=== PATIENT | female | born 1955 | race Caucasian/White ===

== ENCOUNTER 2018-12-24 15:56 | Inpatient (IN) | payer MEDICARE, MEDICAID ==
[2018-12-24] MEDS ORDERED: ESCI20TA PO (16:27)
[2018-12-24] MEDS ORDERED: PREG100C55 PO (16:27)
[2018-12-24] MEDS ORDERED: LEVO25TA7 PO (16:27)
[2018-12-24] MEDS ORDERED: ROPI5TAB4 PO (16:27)
[2018-12-24] MEDS ORDERED: LISI-607 PO (16:27)
[2018-12-24] MEDS ORDERED: DICL100G26 TP (16:27)
[2018-12-24] MEDS ORDERED: ATOR40TA PO (16:27)
[2018-12-24] MEDS ORDERED: BUPR300T54 PO (16:27)
[2018-12-24] MEDS ORDERED: METF-440 PO (16:27)
[2018-12-24] MEDS ORDERED: CYCL5TAB PO (16:27)
[2018-12-24] MEDS ORDERED: OXYC10TA49 PO (16:27)
[2018-12-24] MEDS: CYCLOBENZAPRINE 10 MG TABLET PO SCH ×2 (17:00→19:00)
[2018-12-24] MEDS ORDERED: KETOROLAC TROMETHAMINE INJ 30 MG/ML VIAL IM ONE (17:30)
[2018-12-24] MEDS ORDERED: CARISOPRODOL 350 MG TABLET PO ONE (17:30)
[2018-12-24] MEDS ORDERED: KETOROLAC TROMETHAMINE INJ 30 MG/ML VIAL ONE (17:31)
[2018-12-24] MEDS ORDERED: CARISOPRODOL 350 MG TABLET ONE (17:31)
[2018-12-24] MEDS ORDERED: DICLOFENAC TOPICAL 100 GM GEL..GM. TP PRN (18:00)
[2018-12-24] MEDS ORDERED: TEMAZEPAM 7.5 MG CAPSULE PO PRN (19:00)
[2018-12-24] MEDS ORDERED: ACETAMINOPHEN 325 MG TABLET PO PRN (19:00)
[2018-12-24] MEDS ORDERED: MAGNESIUM HYDROXIDE 30 ML UDC PO PRN (19:00)
[2018-12-24] MEDS ORDERED: MAG HYDROX/AL HYDROX/SIMETH 30 ML UDC PO PRN (19:00)
[2018-12-24] MEDS ORDERED: BLOOD SUGAR DIAGNOSTIC 1 EACH STRIP IN ONE (19:00)
[2018-12-24] MEDS: LISINOPRIL (5MG) 5 MG TABLET PO SCH (21:14)
[2018-12-24] MEDS: ATORVASTATIN 40 MG TABLET PO SCH (21:14)
[2018-12-24] MEDS: oxyCODONE IR immediate release 5 MG PO PRN (23:48)
[2018-12-25] MEDS: LORAZEPAM 0.5 MG TABLET PO PRN ×2 (00:51→11:32)
[2018-12-25] MEDS: oxyCODONE IR immediate release 5 MG PO PRN ×2 (04:08→09:29)
[2018-12-25] MEDS: LEVOTHYROXINE SODIUM 50 MCG TABLET PO SCH (06:52)
[2018-12-25] MEDS: METFORMIN 500 MG TABLET PO SCH ×2 (08:20→16:17)
[2018-12-25] MEDS: PREGABALIN 100 MG CAPSULE PO SCH ×3 (08:20→16:17)
[2018-12-25] MEDS: CYCLOBENZAPRINE 10 MG TABLET PO SCH ×2 (08:20→16:17)
[2018-12-25] MEDS ORDERED: oxyCODONE IR immediate release 5 MG PO PRN (12:30)
[2018-12-25] MEDS: LISINOPRIL (5MG) 5 MG TABLET PO SCH (22:00)
[2018-12-25] MEDS ORDERED: clonazePAM 0.5 MG TABLET PO ONE (22:00)
[2018-12-25] MEDS ORDERED: TRAZODONE 50 MG TABLET PO ONE (22:00)
[2018-12-25] MEDS: ATORVASTATIN 40 MG TABLET PO SCH (22:37)
[2018-12-26] MEDS: SERTRALINE HCL 50 MG TABLET PO SCH (09:18)
[2018-12-26] MEDS: clonazePAM 0.5 MG TABLET PO SCH ×2 (09:18→21:58)
[2018-12-26] MEDS: LEVOTHYROXINE SODIUM 50 MCG TABLET PO SCH (09:18)
[2018-12-26] MEDS: CYCLOBENZAPRINE 10 MG TABLET PO SCH ×2 (09:18→17:11)
[2018-12-26] MEDS: METFORMIN 500 MG TABLET PO SCH ×2 (09:18→17:11)
[2018-12-26] MEDS: PREGABALIN 100 MG CAPSULE PO SCH ×3 (09:18→17:11)
[2018-12-26] MEDS: oxyCODONE IR immediate release 5 MG PO PRN ×2 (11:32→20:23)
[2018-12-26] MEDS: ATORVASTATIN 40 MG TABLET PO SCH (21:58)
[2018-12-26] MEDS: TRAZODONE 50 MG TABLET PO SCH (21:58)
[2018-12-26] MEDS: LISINOPRIL (5MG) 5 MG TABLET PO SCH (21:59)
[2018-12-27] MEDS: LEVOTHYROXINE SODIUM 50 MCG TABLET PO SCH (08:32)
[2018-12-27] MEDS: SERTRALINE HCL 50 MG TABLET PO SCH (08:32)
[2018-12-27] MEDS: METFORMIN 500 MG TABLET PO SCH ×2 (08:32→16:54)
[2018-12-27] MEDS: clonazePAM 0.5 MG TABLET PO SCH ×2 (08:32→22:10)
[2018-12-27] MEDS: PREGABALIN 100 MG CAPSULE PO SCH ×3 (08:33→16:54)
[2018-12-27] MEDS: CYCLOBENZAPRINE 10 MG TABLET PO SCH ×2 (08:33→16:55)
[2018-12-27] MEDS: oxyCODONE IR immediate release 5 MG PO PRN ×2 (11:42→20:15)
[2018-12-27] MEDS: ATORVASTATIN 40 MG TABLET PO SCH (22:10)
[2018-12-27] MEDS: TRAZODONE 50 MG TABLET PO SCH (22:10)
[2018-12-27] MEDS: LISINOPRIL (5MG) 5 MG TABLET PO SCH (22:11)
[2018-12-28] MEDS: LEVOTHYROXINE SODIUM 50 MCG TABLET PO SCH (07:56)
[2018-12-28] MEDS: clonazePAM 0.5 MG TABLET PO SCH (08:44)
[2018-12-28] MEDS: CYCLOBENZAPRINE 10 MG TABLET PO SCH ×2 (08:44→16:22)
[2018-12-28] MEDS: METFORMIN 500 MG TABLET PO SCH ×2 (08:45→16:21)
[2018-12-28] MEDS: PREGABALIN 100 MG CAPSULE PO SCH ×3 (08:45→16:22)
[2018-12-28] MEDS: SERTRALINE HCL 50 MG TABLET PO SCH (08:45)
[2018-12-28] MEDS: oxyCODONE IR immediate release 5 MG PO PRN (12:50)
[2018-12-28] MEDS ORDERED: IV NS 0.9% 1,000 ML IV PRN (21:30)
[2018-12-28] MEDS: LISINOPRIL (5MG) 5 MG TABLET PO SCH (22:00)
[2018-12-28] MEDS: TRAZODONE 50 MG TABLET PO SCH (22:27)
[2018-12-28] MEDS: ATORVASTATIN 40 MG TABLET PO SCH (22:27)
[2018-12-29] MEDS: oxyCODONE IR immediate release 5 MG PO PRN ×3 (00:33→22:14)
[2018-12-29] MEDS: LEVOTHYROXINE SODIUM 50 MCG TABLET PO SCH (07:35)
[2018-12-29] MEDS: METFORMIN 500 MG TABLET PO SCH ×2 (08:22→16:27)
[2018-12-29] MEDS: SERTRALINE HCL 50 MG TABLET PO SCH (08:23)
[2018-12-29] MEDS: CYCLOBENZAPRINE 10 MG TABLET PO SCH ×2 (08:23→16:27)
[2018-12-29] MEDS: clonazePAM 0.5 MG TABLET PO SCH ×2 (08:23→22:06)
[2018-12-29] MEDS: PREGABALIN 100 MG CAPSULE PO SCH ×3 (08:23→16:27)
[2018-12-29] MEDS: LISINOPRIL (5MG) 5 MG TABLET PO SCH (22:00)
[2018-12-29] MEDS: ATORVASTATIN 40 MG TABLET PO SCH (22:05)
[2018-12-29] MEDS: TRAZODONE 50 MG TABLET PO SCH (22:06)
[2018-12-30] MEDS: LEVOTHYROXINE SODIUM 50 MCG TABLET PO SCH (07:52)
[2018-12-30] MEDS: SERTRALINE HCL 50 MG TABLET PO SCH (08:47)
[2018-12-30] MEDS: CYCLOBENZAPRINE 10 MG TABLET PO SCH ×2 (08:48→16:25)
[2018-12-30] MEDS: PREGABALIN 100 MG CAPSULE PO SCH ×3 (08:48→16:25)
[2018-12-30] MEDS: METFORMIN 500 MG TABLET PO SCH ×2 (08:54→16:25)
[2018-12-30] MEDS: oxyCODONE IR immediate release 5 MG PO PRN ×2 (13:25→21:40)
[2018-12-30] MEDS: clonazePAM 0.5 MG TABLET PO SCH (21:04)
[2018-12-30] MEDS: TRAZODONE 50 MG TABLET PO SCH (21:04)
[2018-12-30] MEDS: ATORVASTATIN 40 MG TABLET PO SCH (21:04)
[2018-12-30] MEDS: LISINOPRIL (5MG) 5 MG TABLET PO SCH (21:07)
[2018-12-31] MEDS: LEVOTHYROXINE SODIUM 50 MCG TABLET PO SCH (07:23)
[2018-12-31] MEDS: PREGABALIN 100 MG CAPSULE PO SCH (08:02)
[2018-12-31] MEDS: METFORMIN 500 MG TABLET PO SCH (08:02)
[2018-12-31] MEDS: SERTRALINE HCL 50 MG TABLET PO SCH (08:02)
[2018-12-31] MEDS: CYCLOBENZAPRINE 10 MG TABLET PO SCH (08:03)
[2018-12-31] MEDS: oxyCODONE IR immediate release 5 MG PO PRN (10:42)
== END 2018-12-31 11:55 | disposition home or self-care (01) | DRG 885 ==
DX: F33.9 Major depressive disorder, recurrent, unspecified (principal); F11.20 Opioid dependence, uncomplicated; F23 Brief psychotic disorder; R45.851 Suicidal ideations; F41.9 Anxiety disorder, unspecified; G47.33 Obstructive sleep apnea (adult) (pediatric); I10 Essential (primary) hypertension; G89.29 Other chronic pain; M54.5 Low back pain; E11.9 Type 2 diabetes mellitus without complications; G62.9 Polyneuropathy, unspecified; E78.5 Hyperlipidemia, unspecified; E03.9 Hypothyroidism, unspecified